=== PATIENT | male | born 1960 | race Caucasian/White ===

== ENCOUNTER 2016-11-12 04:02 | Emergency (ER) | payer SELFPAY ==
--- NOTE | ~2016-11-12 | CR172 ---
[facility]. [facility] A Service of [facility] & [facility] RADIOLOGY TEXT RESULTS PATIENT: NASREEN SANZ LOCATION: SED : 60 UNIT #: [id number] AGE: [address]: Solo López MD SEX: M ORDER DR: [id number] [id number] MR#: [id number] Acc #: [id number] NAME: NASREEN SANZ : 1960 SEX: M STUDY DATE/TIME: 11/12/2016 3:53 UNIT: SED ROOM: STUDY DESCRIPTION: CR Knee 3 Views Lt Attending Physician: Solo López M.D. Ordering Physician: Solo Lpóez M.D. Primary Care Physician: No Primary Care Physician MEDICAL IMAGING REPORT This report is preliminary unless electronic signature is present. EXAM Left knee 11/12/2016 HISTORY 56-year-old male in the ED complaining of 1-day history of left knee pain. No reported acute injury. TECHNIQUE Three-view left knee series. FINDINGS No fracture or other acute osseous abnormality. Mild tricompartment degenerative joint space narrowing. No visible joint effusion. IMPRESSION 1. No acute osseous abnormality. 2. Mild tricompartment degenerative joint space narrowing. 3. No joint effusion. Dictated by... Derik Luna M.D. THIS IS AN ELECTRONICALLY VERIFIED REPORT Derik Luna M.D. at 11/13/2016 5:30 AM BARRYW/liam TD: 11/13/2016 02:10 JOB #: [id number] MEDICAL IMAGING REPORT
[~2016-11-12 04:02] MED LIST: NO MEDICATIONS
== END 2016-11-12 04:17 | disposition home or self-care (01) ==
LOC: SED 04:02
DX: M25.562 Pain in left knee (principal); Z88.5 Allergy status to narcotic agent
CPT/HCPCS: 73562; 99283